=== PATIENT | female | born 1955 | race Caucasian/White ===

== ENCOUNTER 2017-03-06 08:00 | Outpatient (CLI) | payer BC | END 2017-03-06 08:01 | disposition home or self-care (01) | LOC: BICMAMMO 08:00 | PROVIDERS: ATTEND Student in an Organized Health Care Education/Training Program | DX: Z12.31 Encounter for screening mammogram for malignant neoplasm of breast (principal); Z13.820 Encounter for screening for osteoporosis | CPT/HCPCS: 77067; 77080; G0202 ==

== ENCOUNTER 2020-01-19 14:23 | Outpatient (CLI) | payer BC | END 2020-01-19 14:24 | disposition home or self-care (01) | LOC: CTENTCT 14:23 | PROVIDERS: ATTEND Specialist | DX: J32.8 Other chronic sinusitis (principal) | CPT/HCPCS: 70486 ==

== ENCOUNTER 2020-11-14 13:41 | Outpatient (CLI) | payer BC, OTHER ==
[2020-11-14] MEDS ORDERED: Magnevist 469MG/ML 20 ML VIAL ONE (13:43)
== END 2020-11-14 13:42 | disposition home or self-care (01) ==
LOC: TBSIIMAG 13:41
PROVIDERS: ATTEND Neurological Surgery
DX: M50.11 Cervical disc disorder with radiculopathy, high cervical region (principal); M47.22 Other spondylosis with radiculopathy, cervical region; M53.82 Other specified dorsopathies, cervical region
CPT/HCPCS: 72156; A9579

== ENCOUNTER 2021-03-27 13:13 | Outpatient (CLI) | payer BC ==
[2021-03-27 14:19] LABS: Hemoglobin 13.7 g/dL (12.0-15.5); Mean Corpuscular Hemoglobin 30.3 pg (27.0-33.0); Mean Corpuscular Volume 91.8 fl (81.6-98.3); Mean Platelet Volume 10.2 fl (7.4-10.4); Platelet Count 233 10x3/uL (150-450); Red Blood Cell (RBC) Count 4.52 10x6/uL (3.90-5.03); White Blood Cell (WBC) Count 5.7 10x3/uL (3.5-10.5)
[2021-03-27 14:26] LABS: Anion Gap 10 mmol/L (10-20); BUN (Urea Nitrogen) 23 mg/dL (9.8-20.1); Calc. Creatinine Clearance 0 mL/min (70-130); Calcium 8.9 mg/dL (7.8-10.44); Carbon Dioxide 29 mmol/L (23-31); Chloride 104 mmol/L (98-107); Glucose 126 mg/dL (80-115); Potassium 4.1 mmol/L (3.5-5.1); Sodium 139 mmol/L (136-145)
[2021-03-28 12:50] LABS: SARS-CoV-2 PCR by NAA Not Detected (NotDetected)
== END 2021-03-27 13:14 | disposition home or self-care (01) ==
LOC: LABBT 13:13
PROVIDERS: ATTEND Neurological Surgery
DX: Z01.818 Encounter for other preprocedural examination (principal); Z20.822 Contact with and (suspected) exposure to COVID-19
CPT/HCPCS: 80048; 85027; 93005; 93010; U0003; U0005

== ENCOUNTER 2021-03-30 07:02 | Day surgery (SDC) | payer BC ==
[2021-03-26 13:26] VITALS: BMI 30.9
[2021-03-30] MEDS ORDERED: Scopolamine 1.5 mg/72 hour Patch ONE (07:42)
[2021-03-30] MEDS ORDERED: Fentanyl 100 MCG/2 ML VIAL ONE ×4 (09:19→12:24)
[2021-03-30] MEDS ORDERED: Lidocaine 2% Jelly 5 ML TUBE ONE (09:24)
[2021-03-30] MEDS ORDERED: Ondansetron PF 4 MG/2 ML Vial ONE ×2 (09:37→11:32)
[2021-03-30] MEDS ORDERED: Rocuronium Bromide 10 MG/ML (10ML VIAL) ONE (09:37)
[2021-03-30] MEDS ORDERED: Ketorolac Tromethamine 30 MG/ML VIAL ONE (09:37)
[2021-03-30] MEDS ORDERED: Glycopyrrolate 0.2 MG/ML 5 ML SYRINGE ONE (09:37)
[2021-03-30] MEDS ORDERED: Lidocaine 1% PF 5 ML VIAL ONE (09:37)
[2021-03-30] MEDS ORDERED: PROPOFOL 200 MG/20 ML VIAL ONE (09:37)
[2021-03-30] MEDS ORDERED: Promethazine HCl 25 MG/ML VIAL ONE (11:55)
[2021-03-30] MEDS ORDERED: ceFAZolin 2 GM/DEX 5% 100 ML BAG ONE (13:59)
[2021-03-30] MEDS ORDERED: Acetaminophen/Codeine 30-300mg Tablet ONE (14:23)
== END 2021-03-30 15:18 | disposition home or self-care (01) ==
LOC: SDC 07:02
PROVIDERS: ATTEND Neurological Surgery
PROC: 0RG10A0 Fusion of Cervical Vertebral Joint with Interbody Fusion Device, Anterior Approach, Anterior Column, Open Approach (ICD-10-PCS; principal; 2021-03-30)
DX: M54.12 Radiculopathy, cervical region (principal); G89.29 Other chronic pain; E11.9 Type 2 diabetes mellitus without complications; M19.90 Unspecified osteoarthritis, unspecified site; G43.909 Migraine, unspecified, not intractable, without status migrainosus; G47.30 Sleep apnea, unspecified; Z79.84 Long term (current) use of oral hypoglycemic drugs; Z79.899 Other long term (current) drug therapy; Z88.2 Allergy status to sulfonamides; Z88.5 Allergy status to narcotic agent; Z91.040 Latex allergy status; Z98.1 Arthrodesis status
CPT/HCPCS: 36416; 76000; C1713; C1776; J1885; J2405; J2550; J2704; J3010

== ENCOUNTER 2021-08-22 18:00 | Outpatient (CLI) | payer BC | END 2021-08-22 18:01 | disposition home or self-care (01) | LOC: SLEEPLAB 18:00 | PROVIDERS: ATTEND Family Medicine | DX: G47.33 Obstructive sleep apnea (adult) (pediatric) (principal); R06.83 Snoring; E11.9 Type 2 diabetes mellitus without complications; K21.9 Gastro-esophageal reflux disease without esophagitis; G47.00 Insomnia, unspecified | CPT/HCPCS: 95800 ==

== ENCOUNTER 2022-06-20 11:53 | Outpatient (CLI) | payer BC | END 2022-06-20 11:54 | disposition home or self-care (01) | LOC: BICRAD 11:53 | PROVIDERS: ATTEND Family Medicine | DX: M79.641 Pain in right hand (principal) ==

== ENCOUNTER 2023-02-03 15:14 | Emergency (ER) | payer BC ==
[~2023-02-03 15:14] MED LIST: Iopamidol-370 76% 500 ML MDV (1 ML CHARGE) ONE
[2023-02-03] MEDS ORDERED: Metoclopramide HCl 10 MG/2 ML VIAL ONE (16:57)
[2023-02-03] MEDS ORDERED: Ondansetron PF 4 MG/2 ML Vial ONE (16:57)
[2023-02-03 17:07] LABS: #Monocytes 0.5 thou/uL (0.11-0.59); #Neutrophils 11.2 thou/uL (1.40-6.50); %Basophils 0.1 % (0.0-1.0); %Lymphocytes 1.8 % (21.0-51.0); %Monocytes 3.9 % (0.0-10.0); %Neutrophils 93.8 % (42.0-75.0); Hematocrit 46.9 % (36.0-47.0); Hemoglobin 15.2 g/dL (12.0-16.0); Mean Corpuscular HGB CONC 32.4 g/dL (32.0-36.0); Mean Corpuscular Hemoglobin 27.3 pg (27.0-31.0); Mean Corpuscular Volume 84.2 fl (78.0-98.0); Mean Platelet Volume 10.9 fL (7.4-10.4); Platelet Count 250 10x3/uL (130-400); Red Blood Cell (RBC) Count 5.57 mill/uL (4.20-5.40); White Blood Cell (WBC) Count 11.9 10x3/uL (4.8-10.8)
[2023-02-03 17:29] LABS: Troponin I Less than 0.010 ng/mL (< 0.028)
[2023-02-03 17:42] LABS: SARS-CoV-2 NAA Rapid Test Not Detected (NotDetected)
[2023-02-03 17:58] LABS: ALT (SGPT) 33 U/L (8-55); AST (SGOT) 33 U/L (5-34); Albumin 4.7 g/dL (3.4-4.8); Alkaline Phosphatase 69 U/L (40-110); Anion Gap 17 mmol/L (10-20); BUN (Urea Nitrogen) 29 mg/dL (9.8-20.1); Bilirubin, Total 0.5 mg/dL (0.2-1.2); Calc. Creatinine Clearance 0 mL/min (70-130); Calcium 9.4 mg/dL (7.8-10.44); Carbon Dioxide 22 mmol/L (23-31); Chloride 102 mmol/L (98-107); Estimated GFR 73; Globulin 3.2 g/dL (2.4-3.5); Glucose 167 mg/dL (80-115); Lipase 17 U/L (8-78); Potassium 4.3 mmol/L (3.5-5.1); Protein, Total 7.9 g/dL (5.8-8.1); Sodium 137 mmol/L (136-145)
[2023-02-03 18:02] LABS: Bacteria/HPF None Seen HPF (None Seen); Bilirubin Negative (Negative); Blood, Urine Negative (Negative); CAUTI Indications for Culture Pelvic or flank pain; Clarity Clear (Clear); Glucose, Urine (Dipstick) Greater than 1000 mg/dL (Negative); Ketone, Urine Negative (Negative); Leukocyte Negative Leu/uL (Negative); Nitrite Negative (Negative); Protein, Urine (Dipstick) 20 mg/dL (Neg-Trace); RBC/HPF 0-3 HPF (0-3); Specific Gravity, Urine 1.034 (1.002-1.036); Squamous Epithelial 0-3 HPF (0-3); Urobilinogen Normal mg/dL (Less than 2); WBC/HPF 0-3 HPF (0-3); pH, Urine 5.5 (5.0-9.0)
[2023-02-03 18:08] LABS: Urine Culture Reflex No No
== END 2023-02-03 19:03 | disposition home or self-care (01) ==
LOC: ERS 15:14
DX: A08.4 Viral intestinal infection, unspecified (principal); E11.9 Type 2 diabetes mellitus without complications; K21.9 Gastro-esophageal reflux disease without esophagitis; Z79.84 Long term (current) use of oral hypoglycemic drugs; Z20.822 Contact with and (suspected) exposure to COVID-19
CPT/HCPCS: 71045; 74177; 80053; 81001; 83690; 84484; 85025; 93005; 96365; 96366; 96375; J2405; J2765; Q9967